=== PATIENT | female | born 1950 | race Caucasian/White ===

== ENCOUNTER 2024-12-20 07:36 | Emergency (ER) | payer MEDICARE ==
[~2024-12-20] VITALS: Ht 162.6 cm; Wt 66.1 kg
[2024-12-20 07:48] VITALS: TEMP 97.2
[2024-12-20] MEDS ORDERED: LOPE-26 PO (07:57)
[2024-12-20] MEDS ORDERED: ELIQ5TAB PO (07:57)
[2024-12-20] MEDS ORDERED: KEPP1TAB PO (07:57)
[2024-12-20] MEDS ORDERED: LISI20TA33 PO (07:57)
[2024-12-20] MEDS ORDERED: METO200T15 PO (07:57)
[2024-12-20] MEDS: ACETAMINOPHEN 500 MG TAB PO ONE (08:31)
[2024-12-20] MEDS: ONDANSETRON 4MG 2ML VIAL IV ONE (09:51)
[2024-12-20] MEDS: MORPHINE 4 MG/ML 1ML VIAL IV ONE (09:52)
[2024-12-20 10:38] VITALS: BP 130/79; O2SAT 95
== END 2024-12-20 10:49 | disposition home or self-care (01) ==
LOC: M ED 07:36
DX: S52.501A Unspecified fracture of the lower end of right radius, initial encounter for closed fracture (principal); S52.601A Unspecified fracture of lower end of right ulna, initial encounter for closed fracture; W01.0XXA Fall on same level from slipping, tripping and stumbling without subsequent striking against object, initial encounter; Y92.009 Unspecified place in unspecified non-institutional (private) residence as the place of occurrence of the external cause; Y93.9 Activity, unspecified; Y99.9 Unspecified external cause status; I10 Essential (primary) hypertension; I48.91 Unspecified atrial fibrillation
CPT/HCPCS: 73110; 96374; 96375; 99283; J2405

== ENCOUNTER → 2024-12-21 | Outpatient (CLI) | payer MEDICARE ==
[~2024-12-21] MED LIST: ELIQ5TAB PO; KEPP1TAB PO; LISI20TA33 PO; LOPE-26 PO; METO200T15 PO
== END ==
LOC: M SOG 07:53
PROVIDERS: ATTEND Orthopaedic Surgery
DX: M25.531 Pain in right wrist (principal)

== ENCOUNTER → 2024-12-28 | Outpatient (CLI) | payer MEDICARE | LOC: M SOG 10:44 | PROVIDERS: ATTEND Physician Assistant | DX: S52.501D Unspecified fracture of the lower end of right radius, subsequent encounter for closed fracture with routine healing (principal); S52.601D Unspecified fracture of lower end of right ulna, subsequent encounter for closed fracture with routine healing ==

== ENCOUNTER → 2025-01-11 | Outpatient (CLI) | payer MEDICARE | LOC: M SOG 07:11 | PROVIDERS: ATTEND Orthopaedic Surgery | DX: S52.501P Unspecified fracture of the lower end of right radius, subsequent encounter for closed fracture with malunion (principal); Y92.9 Unspecified place or not applicable; Y93.9 Activity, unspecified ==